=== PATIENT | female | born 1960 | race Caucasian/White ===

== ENCOUNTER 2016-09-23 18:08 | Inpatient (IN) | payer MEDICARE, MEDICAID ==
[~2016-09-23] VITALS: Ht 149.9 cm; Wt 60.8 kg
[~2016-09-23 18:08] MED LIST: AMLO10TA80 PO; DOCU250C69 PO; FURO-152 PO; HYDR-519 PO; LOSA50TA20 PO; METF500T4 PO; METO2.5T14 PO; NPH,100V11 SQ; PRAV40TA58 PO
[2016-09-23 20:26] LABS: BASOPHILS % 1.3 % (0.0-2.0); EOSINOPHILS % 9.4 % (0.0-5.0); HEMOGLOBIN. 12.5 g/dL (12.0-16.0); LYMPHOCYTES % 7.4 % (20.0-50.0); MEAN CORPUSCULAR HEMOGLOBIN 29.3 pg (28.0-32.0); MEAN CORPUSCULAR HGB CONC 31.9 g/dL (31.0-37.0); MEAN CORPUSCULAR VOLUME 91.8 fL (81.0-99.0); MEAN PLATELET VOLUME 7.7 fl (7.4-10.4); MONOCYTES % 6.8 % (2.0-8.0); NEUTROPHILS % 75.1 % (40.0-76.0); PLATELET 287 x1000/uL (130-400); RED BLOOD CELL COUNT 4.25 mill/uL (4.2-5.4); RED CELL DISTRIBUTION WIDTH 18.6 % (11.6-14.6); WHITE BLOOD COUNT 12.9 x1000/uL (4.5-11.0)
[2016-09-23 20:29] LABS: CHLORIDE 102 mEq/L (98-107); INDEX HEMOLYSI 1 (1-3); INDEX ICTERIC 1 (1-4); INDEX LIPEMIC 1 (1-3)
[2016-09-23 20:31] LABS: INR 1.3; PROTHROMBIN TIME 13.8 sec
[2016-09-23 20:38] LABS: ALANINE AMINOTRANSFERASE 27 IU/L (13-61); ALBUMIN 3.6 g/dL (3.4-5.0); ANION GAP 17; CALCIUM 8.9 mg/dL (8.5-10.1); CARBON DIOXIDE 23 mEq/L (21-32); UREA NITROGEN BLOOD 55 mg/dL (7-21); eGFR 6 mL/min (>60)
[2016-09-23] MEDS ORDERED: ALBUTEROL (0.083%) 2.5MG/3ML NEB HHN ONE (21:00)
[2016-09-23] MEDS ORDERED: DEXTROSE 50% WATER 50ML SYRINGE IV ONE ×2 (21:00→23:15)
[2016-09-23] MEDS ORDERED: INSULIN REGULAR (HUMULIN R) 300UNITS/3ML IV ONE (21:00)
[2016-09-23] MEDS ORDERED: SODIUM BICARBONATE 8.4% 1 MEQ/ML 50ML SYR IV ONE (21:00)
[2016-09-23] MEDS ORDERED: SODIUM POLYSTYRENE SULFONATE 15 G/60 ML BOT PO ONE (21:00)
[2016-09-23] MEDS ORDERED: CALCIUM CHLORIDE 1GM/10ML SYR IV ONE (21:15)
[2016-09-23] MEDS ORDERED: ACETAMINOPHEN 325MG TABLET PO PRN (21:30)
[2016-09-23] MEDS ORDERED: DOCUSATE SODIUM 100MG CAPSULE PO PRN (21:30)
[2016-09-23] MEDS ORDERED: ONDANSETRON HCL 4MG/2ML VIAL IV PRN (21:30)
[2016-09-23] MEDS ORDERED: ZOLPIDEM TARTRATE 5MG TABLET PO PRN (21:33)
[2016-09-23] MEDS ORDERED: HYDROMORPHONE HCL/PF 2MG/ML CPJ IV PRN (22:00)
[2016-09-24 00:44] LABS: CALCIUM 9.8 mg/dL (8.5-10.1); TROPONIN I 0.02 ng/mL (0.00-0.04)
[2016-09-24] MEDS: CLONIDINE 0.1MG TABLET PO PRN ×2 (01:59→16:58)
[2016-09-24 05:44] LABS: BASOPHILS % 0.2 % (0.0-2.0); EOSINOPHILS % 10.5 % (0.0-5.0); HEMATOCRIT. 39.2 % (36.0-48.0); HEMOGLOBIN. 12.6 g/dL (12.0-16.0); LYMPHOCYTES % 8.4 % (20.0-50.0); MEAN CORPUSCULAR HEMOGLOBIN 29.1 pg (28.0-32.0); MEAN CORPUSCULAR HGB CONC 32.1 g/dL (31.0-37.0); MEAN CORPUSCULAR VOLUME 90.8 fL (81.0-99.0); MEAN PLATELET VOLUME 7.7 fl (7.4-10.4); MONOCYTES % 7.2 % (2.0-8.0); NEUTROPHILS % 73.7 % (40.0-76.0); PLATELET 271 x1000/uL (130-400); RED BLOOD CELL COUNT 4.32 mill/uL (4.2-5.4); RED CELL DISTRIBUTION WIDTH 18.8 % (11.6-14.6); WHITE BLOOD COUNT 12.3 x1000/uL (4.5-11.0)
[2016-09-24 05:53] LABS: TROPONIN I 0.03 ng/mL (0.00-0.04)
[2016-09-24] MEDS ORDERED: OMEPRAZOLE 20MG CAPSULE EXTENDED RELEASE PO SCH (07:50)
[2016-09-24 10:43] VITALS: BP 187/87
[2016-09-24] MEDS ORDERED: IPRATROPIUM/ALBUTEROL 0.5-3(2.5)MG/3ML NEB INH SCH (12:00)
[2016-09-24] MEDS ORDERED: DEXTROSE 50% WATER 50ML SYRINGE IV PRN (13:30)
[2016-09-24] MEDS ORDERED: HEPARIN SODIUM 1,000 UNIT/1ML VIAL IV NR (14:30)
[2016-09-24 16:54] VITALS: BP 163/92
[2016-09-24 17:10] VITALS: BP 199/97
[2016-09-24] MEDS ORDERED: BLOOD SUGAR DIAGNOSTIC STRIP TEST SCH (17:10)
[2016-09-24] MEDS ORDERED: INSULIN LISPRO 100 UNITS/ML SUBCUT SCH (17:40)
[2016-09-25] MEDS ORDERED: OMEPRAZOLE 20MG CAPSULE EXTENDED RELEASE PO SCH (07:10)
[2016-09-25] MEDS ORDERED: ENOXAPARIN 30MG/0.3ML SYR SUBCUT SCH (09:00)
== END 2016-09-24 17:25 | disposition left against medical advice (07) | DRG 291 ==
LOC: ER 22:18 → 8WST 22:20
PROVIDERS: ADMIT Family Medicine Adult Medicine; ATTEND Family Medicine Adult Medicine
PROC: 5A1D00Z (ICD-10-PCS; principal; 2016-09-24)
DX: I13.2 Hypertensive heart and chronic kidney disease with heart failure and with stage 5 chronic kidney disease, or end stage renal disease (principal); N18.6 End stage renal disease; J98.11 Atelectasis; E87.5 Hyperkalemia; I50.9 Heart failure, unspecified; E11.22 Type 2 diabetes mellitus with diabetic chronic kidney disease; D63.8 Anemia in other chronic diseases classified elsewhere; E78.5 Hyperlipidemia, unspecified; D72.829 Elevated white blood cell count, unspecified; Z99.2 Dependence on renal dialysis; Z90.710 Acquired absence of both cervix and uterus; Z86.718 Personal history of other venous thrombosis and embolism; Z86.14 Personal history of Methicillin resistant Staphylococcus aureus infection; Z86.711 Personal history of pulmonary embolism
CPT/HCPCS: 36415; 71010; 80048; 80053; 80061; 82962; 84484; 85025; 85610; 87040; 93005; 93970; 96374; 96375; 96376; 99285; J1644; J1815; J3490; J7030

== ENCOUNTER 2016-11-10 21:41 | Emergency (ER) | payer MEDICARE, MEDICAID ==
[~2016-11-10] VITALS: Ht 149.9 cm; Wt 61.0 kg
[2016-11-10 23:56] VITALS: BP 139/75
== END 2016-11-10 23:59 | disposition home or self-care (01) ==
LOC: ER 21:42
DX: I10 Essential (primary) hypertension (principal); E11.9 Type 2 diabetes mellitus without complications; Z79.4 Long term (current) use of insulin
CPT/HCPCS: 99281

== ENCOUNTER 2017-01-07 23:37 | Emergency (ER) | payer MEDICARE, MEDICAID ==
[~2017-01-07] VITALS: Ht 149.9 cm; Wt 63.0 kg
[2017-01-08 00:30] VITALS: BP 150/60
[2017-01-08] MEDS ORDERED: ACETAMINOPHEN WITH CODEINE 300/30MG TABLET PO ONE (00:45)
== END 2017-01-08 02:18 | disposition home or self-care (01) ==
LOC: ER 23:37
DX: S83.92XA Sprain of unspecified site of left knee, initial encounter (principal); I12.0 Hypertensive chronic kidney disease with stage 5 chronic kidney disease or end stage renal disease; E11.22 Type 2 diabetes mellitus with diabetic chronic kidney disease; N18.6 End stage renal disease; Z99.2 Dependence on renal dialysis; Z79.4 Long term (current) use of insulin; Z90.411 Acquired partial absence of pancreas; W19.XXXA Unspecified fall, initial encounter; Y93.89 Activity, other specified; Y92.89 Other specified places as the place of occurrence of the external cause; Y99.8 Other external cause status
CPT/HCPCS: 73562; 99284

== ENCOUNTER 2017-08-24 10:33 | Day surgery (SDC) | payer MEDICARE, MEDICAID ==
[~2017-08-24] VITALS: Ht 152.4 cm; Wt 65.0 kg
[~2017-08-24 10:33] MED LIST changes: +BALANCED SALT IRRIG SOLN 15ML ONE; +BUPIVACAINE HCL/PF 0.75% (7.5MG/ML) 10ML ONE; +CIPROFLOXACIN 0.3% OPHTH SOLN 2.5ML ONE; +LIDOCAINE HCL 2%/EPINEPHRINE 1:100,000 20 ML VIAL INFIL ONE; +NEO/POLYMYX B SULF/DEXAMETH OPHTH OINT 3.5GM ONE; +PREDNISOLONE ACETATE 1% OPHTH DROPS 1ML ONE; +TETRACAINE 0.5% OPHTH DROPS 4ML ONE
[2017-08-24] MEDS ORDERED: HYALURONATE SODIUM 14 MG/ML 0.85ML SYRINGE IO ONE (12:14)
[2017-08-24] MEDS ORDERED: TRIAMCINOLONE ACETONIDE 40MG/ML 1ML VIAL ONE (12:15)
[2017-08-24] MEDS ORDERED: SODIUM CHLORIDE 0.9% 500 ML IV ONE (13:00)
[2017-08-24] MEDS ORDERED: METO-396 PO (13:33)
[2017-08-24] MEDS ORDERED: HYDR100T26 PO (13:33)
[2017-08-24] MEDS ORDERED: SEVE800T8 PO (13:33)
[2017-08-24] MEDS ORDERED: TRAM50TA PO (13:33)
[2017-08-24] MEDS ORDERED: CLON0.1T PO (13:33)
[2017-08-24] MEDS ORDERED: FERR325T6 PO (13:33)
[2017-08-24] MEDS ORDERED: WARF4TAB71 PO (13:33)
[2017-08-24] MEDS ORDERED: LIDOCAINE HCL/PF 1% 10 MG/ML 5ML VIAL ONE (13:34)
[2017-08-24] MEDS ORDERED: PROPOFOL 200MG/20ML VIAL IV ONE (13:34)
[2017-08-24] MEDS ORDERED: CEFAZOLIN SODIUM 1000MG/VIAL ONE (13:35)
[2017-08-24] MEDS ORDERED: SODIUM CHLORIDE 0.9% 10ML VIAL ONE (13:35)
[2017-08-24] MEDS ORDERED: MORPHINE SULFATE 2 MG/ML CPJ (NOT FOR IM USE) IV PRN (14:15)
[2017-08-24] MEDS ORDERED: MORPHINE SULFATE 4 MG/ML CPJ (NOT FOR IM USE) IV PRN (14:59)
[2017-08-24 15:19] VITALS: BP 205/92
== END 2017-08-24 18:30 | disposition home or self-care (01) ==
LOC: OR 10:33
PROVIDERS: ATTEND Ophthalmology
DX: H18.422 Band keratopathy, left eye (principal); H21.1X2 Other vascular disorders of iris and ciliary body, left eye; H40.9 Unspecified glaucoma; I50.9 Heart failure, unspecified; E11.22 Type 2 diabetes mellitus with diabetic chronic kidney disease; I13.2 Hypertensive heart and chronic kidney disease with heart failure and with stage 5 chronic kidney disease, or end stage renal disease; N18.6 End stage renal disease; Z79.01 Long term (current) use of anticoagulants; Z90.710 Acquired absence of both cervix and uterus; Z99.2 Dependence on renal dialysis
CPT/HCPCS: 36415; 65400; 82962; 84132; A4216; J0690; J2270; J3490; J7040; J2704; J3301

== ENCOUNTER 2017-10-05 10:23 | Day surgery (SDC) | payer MEDICARE, MEDICAID ==
[~2017-10-05] VITALS: Ht 149.9 cm; Wt 64.4 kg
[~2017-10-05 10:23] MED LIST changes: -BALANCED SALT IRRIG SOLN 15ML ONE; -BUPIVACAINE HCL/PF 0.75% (7.5MG/ML) 10ML ONE; -CIPROFLOXACIN 0.3% OPHTH SOLN 2.5ML ONE; +CLON0.1T PO; +FERR325T6 PO; +HYDR100T26 PO; -LIDOCAINE HCL 2%/EPINEPHRINE 1:100,000 20 ML VIAL INFIL ONE; +METO-396 PO; -NEO/POLYMYX B SULF/DEXAMETH OPHTH OINT 3.5GM ONE; -PREDNISOLONE ACETATE 1% OPHTH DROPS 1ML ONE; +SEVE800T8 PO; -TETRACAINE 0.5% OPHTH DROPS 4ML ONE; +TRAM50TA PO; +WARF4TAB71 PO
[2017-10-05] MEDS ORDERED: BALANCED SALT IRRIG SOLN COMB1 500ML OP ONE (10:30)
[2017-10-05] MEDS ORDERED: SODIUM CHLORIDE 0.9% 500 ML IV NR (12:30)
[2017-10-05] MEDS ORDERED: HYALURONATE SODIUM 14 MG/ML 0.85ML SYRINGE IO ONE ×2 (14:23→14:30)
[2017-10-05] MEDS ORDERED: TRIAMCINOLONE ACETONIDE 40MG/ML 1ML VIAL ONE (14:23)
[2017-10-05] MEDS ORDERED: MIDAZOLAM HCL 2 MG/2 ML VIAL ONE (14:33)
[2017-10-05] MEDS ORDERED: FENTANYL CITRATE/PF 50MCG/ML 2ML VIAL ONE (14:42)
[2017-10-05] MEDS ORDERED: PROPOFOL 200MG/20ML VIAL IV ONE (14:42)
[2017-10-05] MEDS ORDERED: LIDOCAINE HCL/PF 1% 10 MG/ML 5ML VIAL ONE (14:58)
[2017-10-05] MEDS ORDERED: SUCCINYLCHOLINE CHLORIDE 200MG/10ML VIAL IV ONE (14:58)
[2017-10-05] MEDS ORDERED: DEXAMETHASONE 4MG/ML 1ML VIAL ONE (15:28)
[2017-10-05] MEDS ORDERED: ONDANSETRON HCL 4MG/2ML VIAL ONE (15:28)
[2017-10-05] MEDS ORDERED: HYDRALAZINE 20MG/ML VIAL ONE (16:01)
[2017-10-05] MEDS ORDERED: ACETYLCHOLINE CHLORIDE INTRAOCULAR SOLUTION 1:100 ELECTROLYTE DILUENT IO ONE (16:40)
[2017-10-05] MEDS ORDERED: PREDNISOLONE ACETATE 1% OPHTH DROPS 1ML ONE (16:40)
[2017-10-05] MEDS ORDERED: TETRACAINE 0.5% OPHTH DROPS 4ML ONE (16:40)
[2017-10-05] MEDS ORDERED: LIDOCAINE HCL/PF 2% 20 MG/ML 10ML VIAL ONE (16:40)
[2017-10-05] MEDS ORDERED: NEO/POLYMYX B SULF/DEXAMETH OPHTH OINT 3.5GM ONE (16:40)
[2017-10-05] MEDS ORDERED: LIDOCAINE HCL 2%/EPINEPHRINE 1:100,000 20 ML VIAL INFIL ONE (16:40)
[2017-10-05] MEDS ORDERED: BALANCED SALT IRRIG SOLN 15ML ONE (16:40)
[2017-10-05] MEDS ORDERED: CIPROFLOXACIN 0.3% OPHTH SOLN 2.5ML ONE (16:40)
[2017-10-05] MEDS ORDERED: LABETALOL HCL 5MG/ML VIAL 20ML IV ONE (16:40)
[2017-10-05] MEDS ORDERED: TROPICAMIDE 1% OPHTH DROPS 15ML ONE (16:40)
[2017-10-05] MEDS ORDERED: BUPIVACAINE HCL/PF 0.75% (7.5MG/ML) 10ML ONE (16:40)
[2017-10-05] MEDS ORDERED: CYCLOPENTOLATE HCL 1% OPHTH DROPS 2ML ONE (16:40)
[2017-10-05] MEDS ORDERED: PHENYLEPHRINE HCL 10% OPHTH DROPS 5ML ONE (16:40)
== END 2017-10-05 19:15 | disposition home or self-care (01) ==
LOC: OR 10:23
PROVIDERS: ATTEND Ophthalmology
DX: H25.22 Age-related cataract, morgagnian type, left eye (principal); H21.542 Posterior synechiae (iris), left eye; H43.12 Vitreous hemorrhage, left eye; F41.8 Other specified anxiety disorders; I13.2 Hypertensive heart and chronic kidney disease with heart failure and with stage 5 chronic kidney disease, or end stage renal disease; N18.6 End stage renal disease; E11.22 Type 2 diabetes mellitus with diabetic chronic kidney disease; Z79.01 Long term (current) use of anticoagulants; Z90.710 Acquired absence of both cervix and uterus; Z99.2 Dependence on renal dialysis; I50.9 Heart failure, unspecified; Z79.899 Other long term (current) drug therapy; Z98.890 Other specified postprocedural states
CPT/HCPCS: 36415; 65875; 66982; 82962; 84132; J0330; J0360; J1100; J2250; J2405; J3010; J3301; J3490; J7040; V2632; J2704

== ENCOUNTER 2018-05-30 06:22 | Inpatient (IN) | payer MEDICARE, MEDICAID ==
[~2018-05-30] VITALS: Ht 175.3 cm; Wt 86.2 kg
[~2018-05-30 06:22] MED LIST changes: +METF-414 PO; -METF500T4 PO
[2018-05-30 08:41] LABS: INR 1.2; PROTHROMBIN TIME 11.6 sec (9.1-11.1)
[2018-05-30] MEDS ORDERED: DEXTROSE 50% WATER 50ML SYRINGE IV STA (10:08)
[2018-05-30] MEDS ORDERED: INSULIN REGULAR (HUMULIN R) UD 100 UNITS/ML SYR IV STA (10:08)
[2018-05-30] MEDS ORDERED: CLONIDINE 0.1MG TABLET PO PRN (10:30)
[2018-05-30] MEDS: AMLODIPINE 10MG TABLET PO SCH (10:30)
[2018-05-30] MEDS ORDERED: HYDROMORPHONE HCL/PF 2MG/ML CPJ IV PRN (10:30)
[2018-05-30] MEDS ORDERED: ONDANSETRON HCL 4MG/2ML INJ IV PRN (10:30)
[2018-05-30] MEDS ORDERED: ACETAMINOPHEN 325MG TABLET PO PRN (10:30)
[2018-05-30] MEDS ORDERED: DOCUSATE SODIUM 100MG CAPSULE PO PRN (10:30)
[2018-05-30] MEDS ORDERED: SODIUM BICARBONATE 8.4% 1 MEQ/ML 50ML SYR IV NR (11:00)
[2018-05-30] MEDS ORDERED: INSULIN REGULAR (HUMULIN R) 300UNITS/3ML IV NR (11:30)
[2018-05-30 12:00] VITALS: BP 145/57
[2018-05-30 12:00] LABS: BASOPHILS % 1.4 % (0.0-2.0); EOSINOPHILS % 8.7 % (0.0-5.0); HEMATOCRIT. 29.7 % (36.0-48.0); HEMOGLOBIN. 10.1 g/dL (12.0-16.0); LYMPHOCYTES % 11.6 % (20.0-50.0); MEAN CORPUSCULAR HEMOGLOBIN 31.6 pg (28.0-32.0); MEAN CORPUSCULAR VOLUME 93.2 fL (81.0-99.0); MEAN PLATELET VOLUME 8.3 fl (7.4-10.4); MONOCYTES % 7.4 % (2.0-8.0); NEUTROPHILS % 70.9 % (40.0-76.0); PLATELET 178 x1000/uL (130-400); RED BLOOD CELL COUNT 3.19 mill/uL (4.2-5.4); RED CELL DISTRIBUTION WIDTH 16.2 % (11.6-14.6)
[2018-05-30] MEDS: SEVELAMER CARBONATE 800 MG TABLET PO SCH ×2 (13:00→18:16)
[2018-05-30] MEDS: HYDRALAZINE HCL 100MG TABLET PO SCH ×2 (14:00→22:05)
[2018-05-30 16:00] VITALS: BP 114/43
[2018-05-30] MEDS: INSULIN LISPRO 100 UNITS/ML SUBCUT SCH ×2 (18:10→22:13)
[2018-05-30] MEDS ORDERED: DEXTROSE 50% WATER 50ML SYRINGE IV PRN (18:15)
[2018-05-30] MEDS: ENOXAPARIN 30MG/0.3ML SYR SUBCUT SCH (18:17)
[2018-05-30 20:00] VITALS: BP 162/89
[2018-05-30] MEDS: BLOOD SUGAR DIAGNOSTIC STRIP TEST SCH (21:00)
[2018-05-30] MEDS ORDERED: ATORVASTATIN CALCIUM 20MG TABLET PO SCH (21:00)
[2018-05-30] MEDS ORDERED: INSULIN GLARGINE UD 100 UNITS/ML SYR SUBCUT SCH (22:00)
[2018-05-30] MEDS: METOPROLOL TARTRATE 25MG TABLET PO SCH (22:05)
[2018-05-31] VITALS: BP 167/57
[2018-05-31 04:00] VITALS: BP 155/49
[2018-05-31] MEDS: HYDRALAZINE HCL 100MG TABLET PO SCH ×2 (06:00→14:53)
[2018-05-31] MEDS ORDERED: BUPIVACAINE HCL/EPINEPHRINE 0.5%/0.0005 30ML ONE (06:50)
[2018-05-31 07:20] LABS: BASOPHILS % 1.2 % (0.0-2.0); EOSINOPHILS % 7.7 % (0.0-5.0); HEMATOCRIT. 29.3 % (36.0-48.0); HEMOGLOBIN. 9.9 g/dL (12.0-16.0); LYMPHOCYTES % 8.6 % (20.0-50.0); MEAN CORPUSCULAR HEMOGLOBIN 31.4 pg (28.0-32.0); MEAN CORPUSCULAR VOLUME 92.8 fL (81.0-99.0); MONOCYTES % 8.5 % (2.0-8.0); PLATELET 171 x1000/uL (130-400); RED BLOOD CELL COUNT 3.16 mill/uL (4.2-5.4); RED CELL DISTRIBUTION WIDTH 16.5 % (11.6-14.6)
[2018-05-31] MEDS ORDERED: LIDOCAINE HCL 1% 20ML VIAL (Pyxis) INJ ONE (07:20)
[2018-05-31 07:25] LABS: CHLORIDE 99 mEq/L (98-107)
[2018-05-31] MEDS ORDERED: LIDOCAINE HCL/EPINEPHRINE 1%-EPI 1:100,000 20 ML VIAL ONE (07:30)
[2018-05-31 07:32] LABS: LDL CHOLESTEROL 42 mg/dL (5-100)
[2018-05-31 07:33] LABS: HDL CHOLESTEROL 41 mg/dL (40-59)
[2018-05-31] MEDS ORDERED: FENTANYL CITRATE/PF 50MCG/ML 2ML VIAL ONE (07:37)
[2018-05-31] MEDS ORDERED: PROPOFOL 200MG/20ML VIAL IV ONE (07:39)
[2018-05-31] MEDS: BLOOD SUGAR DIAGNOSTIC STRIP TEST SCH ×2 (07:40→12:40)
[2018-05-31] MEDS ORDERED: MIDAZOLAM HCL 2 MG/2 ML VIAL ONE (07:40)
[2018-05-31] MEDS ORDERED: ROCURONIUM BROMIDE 10MG/ML VIAL 5ML IV ONE (07:42)
[2018-05-31] MEDS: SEVELAMER CARBONATE 800 MG TABLET PO SCH ×2 (08:10→13:16)
[2018-05-31] MEDS: INSULIN LISPRO 100 UNITS/ML SUBCUT SCH ×2 (08:10→13:15)
[2018-05-31] MEDS ORDERED: SKIN ADHESIVE 0.7 GM EA TOP ONE (08:31)
[2018-05-31] MEDS ORDERED: NEOSTIGMINE METHYLSULFATE 1MG/ML 10 ML VIAL ONE (08:40)
[2018-05-31] MEDS ORDERED: GLYCOPYRROLATE 0.2 MG/ML 2ML VIAL ONE (08:42)
[2018-05-31] MEDS ORDERED: CALCIUM CHLORIDE 1GM/10ML SYR IV ONE (08:58)
[2018-05-31] MEDS: AMLODIPINE 10MG TABLET PO SCH (09:00)
[2018-05-31] MEDS ORDERED: FOLIC ACID/VITAMIN B COMP W-C TABLET PO SCH (09:00)
[2018-05-31] MEDS: METOPROLOL TARTRATE 25MG TABLET PO SCH (09:00)
[2018-05-31] MEDS ORDERED: ONDANSETRON HCL 4MG/2ML INJ IV PRN (11:45)
[2018-05-31] MEDS ORDERED: HYDROMORPHONE HCL/PF 2MG/ML CPJ IV PRN (11:45)
[2018-05-31 12:00] VITALS: BP 138/58
[2018-05-31 16:00] VITALS: BP 140/56
[2018-05-31] MEDS: ENOXAPARIN 30MG/0.3ML SYR SUBCUT SCH (16:00)
[2018-05-31 16:02] VITALS: BP 128/61
[2018-05-31 16:35] VITALS: BP 145/57
== END 2018-05-31 17:05 | disposition home or self-care (01) | DRG 802 ==
LOC: OR 06:22 → 7WST 14:07
PROVIDERS: ADMIT Emergency Medicine; ATTEND Emergency Medicine
PROC: 5A1D70Z Performance of Urinary Filtration, Intermittent, Less than 6 Hours Per Day (ICD-10-PCS; 2018-05-30)
PROC: 5A1D70Z Performance of Urinary Filtration, Intermittent, Less than 6 Hours Per Day (ICD-10-PCS; 2018-05-31)
PROC: 07B20ZX Excision of Left Neck Lymphatic, Open Approach, Diagnostic (ICD-10-PCS; principal; 2018-05-31 07:30)
DX: R59.1 Generalized enlarged lymph nodes (principal); N18.6 End stage renal disease; I12.0 Hypertensive chronic kidney disease with stage 5 chronic kidney disease or end stage renal disease; E87.5 Hyperkalemia; E11.22 Type 2 diabetes mellitus with diabetic chronic kidney disease; E78.5 Hyperlipidemia, unspecified; D63.8 Anemia in other chronic diseases classified elsewhere; Z79.01 Long term (current) use of anticoagulants; Z79.4 Long term (current) use of insulin; Z86.711 Personal history of pulmonary embolism; Z86.718 Personal history of other venous thrombosis and embolism; Z99.2 Dependence on renal dialysis
CPT/HCPCS: 36415; 80048; 80061; 82962; 84132; 84484; 88305; 93970; C1893; J0171; J1170; J1650; J1815; J2250; J2405; J2704; J2710; J3010; J3490

== ENCOUNTER → 2018-12-30 | Day surgery (SDC) | payer MEDICARE, MEDICAID ==
[~2018-12-30] MED LIST changes: +LIDOCAINE HCL 1% 20ML VIAL (Pyxis) INJ ONE; -LOSA50TA20 PO; +LOSA50TA41 PO; +SODIUM BICARBONATE 4% (2.4MEQ) 5ML VIAL IV ONE
== END | disposition home or self-care (01) ==
LOC: RAD 08:43
PROVIDERS: ATTEND Family Medicine Adult Medicine
DX: R18.8 Other ascites (principal); E11.9 Type 2 diabetes mellitus without complications; I10 Essential (primary) hypertension; Z79.01 Long term (current) use of anticoagulants; Z79.84 Long term (current) use of oral hypoglycemic drugs; Z79.899 Other long term (current) drug therapy; Z83.3 Family history of diabetes mellitus; Z82.49 Family history of ischemic heart disease and other diseases of the circulatory system; Z80.8 Family history of malignant neoplasm of other organs or systems
CPT/HCPCS: 49083; J3490

== ENCOUNTER 2019-02-15 14:51 | Inpatient (IN) | payer MEDICARE, MEDICAID ==
[~2019-02-15] VITALS: Ht 149.9 cm; Wt 66.4 kg
[~2019-02-15 14:51] MED LIST changes: -LIDOCAINE HCL 1% 20ML VIAL (Pyxis) INJ ONE; -SODIUM BICARBONATE 4% (2.4MEQ) 5ML VIAL IV ONE
[2019-02-15] MEDS ORDERED: ONDANSETRON HCL 4MG/2ML INJ IV STA (18:30)
[2019-02-15 18:58] LABS: BASOPHILS % 1.2 % (0.0-2.0); EOSINOPHILS % 1.3 % (0.0-5.0); HEMATOCRIT. 31.5 % (36.0-48.0); HEMOGLOBIN. 10.5 g/dL (12.0-16.0); LYMPHOCYTES % 7.9 % (20.0-50.0); MEAN CORPUSCULAR HEMOGLOBIN 30.1 pg (28.0-32.0); MEAN CORPUSCULAR VOLUME 90.6 fL (81.0-99.0); MEAN PLATELET VOLUME 7.5 fl (7.4-10.4); MONOCYTES % 7.7 % (2.0-8.0); NEUTROPHILS % 81.9 % (40.0-76.0); PLATELET 199 x1000/uL (130-400); RED BLOOD CELL COUNT 3.47 mill/uL (4.2-5.4)
[2019-02-15 19:01] LABS: CHLORIDE 99 mEq/L (98-107)
[2019-02-15 19:02] LABS: INR 1.3; PROTHROMBIN TIME 12.9 sec (9.6-11.0)
[2019-02-15] MEDS ORDERED: CLONIDINE 0.2MG TABLET PO ONE (20:00)
[2019-02-16 00:30] VITALS: BP 172/77
[2019-02-16] MEDS ORDERED: ONDANSETRON HCL 4MG/2ML INJ IV PRN (01:45)
[2019-02-16] MEDS ORDERED: DOCUSATE SODIUM 100MG CAPSULE PO PRN (01:45)
[2019-02-16] MEDS ORDERED: LORAZEPAM 0.5MG TABLET PO PRN (01:45)
[2019-02-16] MEDS ORDERED: HYDROCODONE/ACETAMINOPHEN 5/325MG TABLET PO PRN (01:45)
[2019-02-16] MEDS ORDERED: HYDROCODONE/ACETAMINOPHEN 10/325MG TABLET PO PRN (01:45)
[2019-02-16] MEDS ORDERED: DIPHENHYDRAMINE 50MG/ML VIAL IV PRN (01:45)
[2019-02-16] MEDS ORDERED: IPRATROPIUM/ALBUTEROL 0.5-3(2.5)MG/3ML NEB INH PRN (01:45)
[2019-02-16] MEDS ORDERED: ACETAMINOPHEN 650MG SUPP PR PRN (01:45)
[2019-02-16] MEDS ORDERED: MAGNESIUM/ALUMINUM HYDROXIDE/SIMETHICONE 30ML UDC PO PRN (01:45)
[2019-02-16] MEDS ORDERED: ACETAMINOPHEN 325MG TABLET PO PRN (01:45)
[2019-02-16] MEDS ORDERED: HYDROCODONE/APAP 7.5/325MG 1 TAB TABLET PO PRN (01:45)
[2019-02-16] MEDS: CLONIDINE 0.1MG TABLET PO PRN ×2 (03:30→12:49)
[2019-02-16 04:00] VITALS: BP 177/79
[2019-02-16] MEDS ORDERED: DEXTROSE 50% WATER 50ML SYRINGE IV PRN (04:00)
[2019-02-16] MEDS: BLOOD SUGAR DIAGNOSTIC STRIP TEST SCH ×4 (06:44→20:21)
[2019-02-16] MEDS ORDERED: LIDOCAINE HCL 1% 20ML VIAL (Pyxis) INJ ONE (07:46)
[2019-02-16] MEDS ORDERED: SODIUM BICARBONATE 4% (2.4MEQ) 5ML VIAL IV ONE (07:47)
[2019-02-16] MEDS: INSULIN LISPRO 100 UNITS/ML SUBCUT SCH ×4 (07:50→20:22)
[2019-02-16 08:00] VITALS: BP 140/75
[2019-02-16 08:07] LABS: PHOSPHORUS 6.9 mg/dL (2.5-4.9)
[2019-02-16 08:27] LABS: BASOPHILS % 1.6 % (0.0-2.0); EOSINOPHILS % 4.6 % (0.0-5.0); HEMATOCRIT. 28.2 % (36.0-48.0); HEMOGLOBIN. 9.4 g/dL (12.0-16.0); LYMPHOCYTES % 11.5 % (20.0-50.0); MEAN CORPUSCULAR HEMOGLOBIN 30.3 pg (28.0-32.0); MEAN CORPUSCULAR VOLUME 90.3 fL (81.0-99.0); MEAN PLATELET VOLUME 8.5 fl (7.4-10.4); MONOCYTES % 9.2 % (2.0-8.0); NEUTROPHILS % 73.1 % (40.0-76.0); PLATELET 179 x1000/uL (130-400); RED BLOOD CELL COUNT 3.12 mill/uL (4.2-5.4); RED CELL DISTRIBUTION WIDTH 16.1 % (11.6-14.6)
[2019-02-16 08:33] LABS: CHLORIDE 101 mEq/L (98-107)
[2019-02-16] MEDS: AMLODIPINE 5MG TABLET PO SCH (09:00)
[2019-02-16 12:00] VITALS: BP 172/75
[2019-02-16] MEDS: LOSARTAN POTASSIUM 50 MG TABLET PO SCH (13:15)
[2019-02-16] MEDS: CLONIDINE 0.1MG TABLET PO SCH ×2 (14:00→21:09)
[2019-02-16] MEDS: HYDRALAZINE HCL 50MG TABLET PO SCH ×2 (14:00→21:08)
[2019-02-16 14:12] LABS: HEMATOCRIT 27.5 % (36.0-48.0); HEMOGLOBIN 9.3 g/dL (12.0-16.0)
[2019-02-16 16:00] VITALS: BP 150/80
[2019-02-16 20:00] VITALS: BP 186/56
[2019-02-16] MEDS ORDERED: CARVEDILOL 3.125 MG TABLET PO SCH (21:00)
[2019-02-17] VITALS: BP 183/63
[2019-02-17] MEDS: CLONIDINE 0.1MG TABLET PO PRN (01:03)
[2019-02-17 04:00] VITALS: BP 155/69
[2019-02-17] MEDS: CLONIDINE 0.1MG TABLET PO SCH ×2 (05:06→14:00)
[2019-02-17] MEDS: HYDRALAZINE HCL 50MG TABLET PO SCH ×2 (05:06→14:00)
[2019-02-17] MEDS: BLOOD SUGAR DIAGNOSTIC STRIP TEST SCH ×2 (06:42→13:19)
[2019-02-17 06:56] LABS: BASOPHILS % 0.9 % (0.0-2.0); EOSINOPHILS % 8.2 % (0.0-5.0); HEMOGLOBIN. 8.8 g/dL (12.0-16.0); LYMPHOCYTES % 10.1 % (20.0-50.0); MEAN CORPUSCULAR HEMOGLOBIN 30.2 pg (28.0-32.0); MEAN CORPUSCULAR VOLUME 88.9 fL (81.0-99.0); MONOCYTES % 9.1 % (2.0-8.0); NEUTROPHILS % 71.7 % (40.0-76.0); PLATELET 184 x1000/uL (130-400); RED BLOOD CELL COUNT 2.93 mill/uL (4.2-5.4); RED CELL DISTRIBUTION WIDTH 15.9 % (11.6-14.6)
[2019-02-17 07:24] LABS: CHLORIDE 103 mEq/L (98-107)
[2019-02-17 07:37] LABS: HDL CHOLESTEROL 31 mg/dL (40-59); LDL CHOLESTEROL 47 mg/dL (5-100)
[2019-02-17 07:40] LABS: T4 FREE 1.18 ng/dL (0.76-1.46)
[2019-02-17] MEDS: INSULIN LISPRO 100 UNITS/ML SUBCUT SCH ×2 (07:50→13:19)
[2019-02-17 08:16] VITALS: BP 138/56
[2019-02-17] MEDS: LOSARTAN POTASSIUM 50 MG TABLET PO SCH (08:47)
[2019-02-17] MEDS: AMLODIPINE 5MG TABLET PO SCH (08:50)
[2019-02-17] MEDS ORDERED: CARVEDILOL 6.25 MG TABLET PO SCH (09:00)
[2019-02-17 12:03] VITALS: BP 156/56
[2019-02-17 15:44] VITALS: BP 119/51
[2019-02-17 16:45] VITALS: BP 119/51
== END 2019-02-17 17:15 | disposition home or self-care (01) | DRG 432 ==
LOC: ER 14:51 → EDBEDREQ 18:37 → 6WST 19:19 → EDBEDREQTM 19:24 → EDBEDREQ 19:24 → ENRESERV 23:23
PROVIDERS: ADMIT Family Medicine Adult Medicine; ATTEND Family Medicine Adult Medicine
PROC: 5A1D70Z Performance of Urinary Filtration, Intermittent, Less than 6 Hours Per Day (ICD-10-PCS; principal; 2019-02-16)
PROC: 0W9G3ZZ Drainage of Peritoneal Cavity, Percutaneous Approach (ICD-10-PCS; 2019-02-16)
DX: K74.60 Unspecified cirrhosis of liver (principal); J96.21 Acute and chronic respiratory failure with hypoxia; N18.6 End stage renal disease; I50.23 Acute on chronic systolic (congestive) heart failure; R18.8 Other ascites; I13.2 Hypertensive heart and chronic kidney disease with heart failure and with stage 5 chronic kidney disease, or end stage renal disease; I42.9 Cardiomyopathy, unspecified; D63.8 Anemia in other chronic diseases classified elsewhere; E87.5 Hyperkalemia; I44.7 Left bundle-branch block, unspecified; I27.20 Pulmonary hypertension, unspecified; Z60.2 Problems related to living alone; I48.0 Paroxysmal atrial fibrillation; E11.22 Type 2 diabetes mellitus with diabetic chronic kidney disease; Z95.828 Presence of other vascular implants and grafts; Z86.718 Personal history of other venous thrombosis and embolism; Z99.81 Dependence on supplemental oxygen; Z86.711 Personal history of pulmonary embolism; Z90.49 Acquired absence of other specified parts of digestive tract; Z79.84 Long term (current) use of oral hypoglycemic drugs; Z79.01 Long term (current) use of anticoagulants; Z79.899 Other long term (current) drug therapy; Z83.3 Family history of diabetes mellitus; Z82.49 Family history of ischemic heart disease and other diseases of the circulatory system
CPT/HCPCS: 36415; 49083; 71045; 80048; 80061; 82962; 83036; 83735; 84100; 84439; 84443; 84481; 84484; 85014; 85018; 93005; 93306; 93970; 96374; 99285; J1815; J3490

== ENCOUNTER 2019-12-04 12:43 | Emergency (ER) | payer MEDICARE, MEDICAID ==
[~2019-12-04] VITALS: Ht 157.5 cm; Wt 72.5 kg
[2019-12-04 14:54] VITALS: BP 142/82
== END 2019-12-04 17:03 | disposition home or self-care (01) ==
LOC: ER 12:43
DX: R18.8 Other ascites (principal); H61.23 Impacted cerumen, bilateral; E11.22 Type 2 diabetes mellitus with diabetic chronic kidney disease; I12.0 Hypertensive chronic kidney disease with stage 5 chronic kidney disease or end stage renal disease; N18.6 End stage renal disease; Z99.2 Dependence on renal dialysis; Z79.84 Long term (current) use of oral hypoglycemic drugs
CPT/HCPCS: 99281

== ENCOUNTER 2019-12-05 07:35 | Inpatient (IN) | payer MEDICARE, MEDICAID ==
[~2019-12-05] VITALS: Ht 152.4 cm; Wt 60.3 kg
[2019-12-05 09:26] LABS: HEMATOCRIT. 31.4 % (36.0-48.0); HEMOGLOBIN. 10.6 g/dL (12.0-16.0); MEAN CORPUSCULAR HEMOGLOBIN 31.5 pg (28.0-32.0); MEAN CORPUSCULAR VOLUME 93.5 fL (81.0-99.0); MEAN PLATELET VOLUME 8.3 fl (7.4-10.4); PLATELET 198 x1000/uL (130-400); RED BLOOD CELL COUNT 3.36 mill/uL (4.2-5.4); RED CELL DISTRIBUTION WIDTH 16.5 % (11.6-14.6)
[2019-12-05 09:32] LABS: CHLORIDE 101 mEq/L (98-107)
[2019-12-05 09:38] LABS: PARTIAL THROMBOPLASTIN TIME 44.6 sec (23.4-31.0); PROTHROMBIN TIME 61.4 sec (9.6-11.0)
[2019-12-05 09:56] LABS: INR 5.9
[2019-12-05 10:14] LABS: PLATELET ESTIMATE NORMAL
[2019-12-05] MEDS ORDERED: ALBUTEROL (0.083%) 2.5MG/3ML NEB HHN ONE (10:15)
[2019-12-05] MEDS ORDERED: DEXTROSE 50% WATER 50ML SYRINGE IV ONE (10:15)
[2019-12-05] MEDS ORDERED: SODIUM POLYSTYRENE SULFONATE 15 G/60 ML BOT PO ONE (10:15)
[2019-12-05] MEDS ORDERED: INSULIN REGULAR (HUMULIN R) 300UNITS/3ML IV ONE (10:15)
[2019-12-05] MEDS ORDERED: SODIUM BICARBONATE 8.4% 1 MEQ/ML 50ML SYR IV ONE (10:15)
[2019-12-05] MEDS ORDERED: ONDANSETRON HCL 4MG/2ML INJ IV PRN (11:15)
[2019-12-05] MEDS ORDERED: CLONIDINE 0.1MG TABLET PO PRN (13:15)
[2019-12-05] MEDS ORDERED: PHYTONADIONE 10MG/ML AMP SUBCUT SCH (13:15)
[2019-12-05] MEDS ORDERED: ACETAMINOPHEN 325MG TABLET PO PRN (13:15)
[2019-12-05] MEDS ORDERED: DEXTROSE 50% WATER 50ML SYRINGE IV PRN (13:15)
[2019-12-05] MEDS: BLOOD SUGAR DIAGNOSTIC STRIP TEST SCH ×3 (14:10→21:46)
[2019-12-05] MEDS: INSULIN LISPRO 100 UNITS/ML SUBCUT SCH ×3 (14:13→21:46)
[2019-12-05 16:30] VITALS: BP 129/73
[2019-12-05 20:00] VITALS: BP_SYST 113; BP_SYST 117; BP_DIAS 67; BP_DIAS 75
[2019-12-06] VITALS (11 sets, daily range): BP systolic 121–156; BP diastolic 64–89
[2019-12-06] MEDS: INSULIN LISPRO 100 UNITS/ML SUBCUT SCH ×4 (07:50→20:39)
[2019-12-06] MEDS: BLOOD SUGAR DIAGNOSTIC STRIP TEST SCH ×4 (07:52→20:35)
[2019-12-06 10:02] LABS: HEMATOCRIT. 30.4 % (36.0-48.0); HEMOGLOBIN. 10.2 g/dL (12.0-16.0); MEAN CORPUSCULAR HEMOGLOBIN 31.1 pg (28.0-32.0); MEAN CORPUSCULAR VOLUME 92.9 fL (81.0-99.0); MEAN PLATELET VOLUME 8.3 fl (7.4-10.4); PLATELET 182 x1000/uL (130-400); RED BLOOD CELL COUNT 3.27 mill/uL (4.2-5.4); RED CELL DISTRIBUTION WIDTH 16.8 % (11.6-14.6)
[2019-12-06 10:07] LABS: INR 2.4; PROTHROMBIN TIME 25.6 sec (9.6-11.0)
[2019-12-06 10:43] LABS: PLATELET ESTIMATE NORMAL
[2019-12-06] MEDS ORDERED: DOXA4TAB3 MT (16:57)
[2019-12-06] MEDS ORDERED: HYDR-459 MT (16:57)
[2019-12-06] MEDS ORDERED: CLON-457 PO (16:57)
[2019-12-06] MEDS ORDERED: MECL-159 MT (16:57)
[2019-12-06] MEDS ORDERED: TRAZODONE HCL 50MG TABLET PO PRN (23:00)
[2019-12-06] MEDS: TRAZODONE HCL 50MG TABLET PO PRN (23:34)
[2019-12-07 00:20] VITALS: BP 131/76
[2019-12-07 04:00] VITALS: BP 146/93
[2019-12-07] MEDS: TRAZODONE HCL 50MG TABLET PO PRN (04:53)
[2019-12-07] MEDS: BLOOD SUGAR DIAGNOSTIC STRIP TEST SCH ×3 (06:47→17:20)
[2019-12-07] MEDS: INSULIN LISPRO 100 UNITS/ML SUBCUT SCH ×3 (07:50→17:50)
[2019-12-07 07:58] VITALS: BP 143/82
[2019-12-07 08:40] LABS: BASOPHILS % 1.6 % (0.0-2.0); HEMATOCRIT. 28.7 % (36.0-48.0); HEMOGLOBIN. 9.9 g/dL (12.0-16.0); LYMPHOCYTES % 9.8 % (20.0-50.0); MEAN CORPUSCULAR HEMOGLOBIN 32.2 pg (28.0-32.0); MEAN CORPUSCULAR VOLUME 93.5 fL (81.0-99.0); NEUTROPHILS % 72.6 % (40.0-76.0); PLATELET 167 x1000/uL (130-400); RED BLOOD CELL COUNT 3.07 mill/uL (4.2-5.4); RED CELL DISTRIBUTION WIDTH 16.9 % (11.6-14.6)
[2019-12-07 08:52] LABS: INR 1.5; PROTHROMBIN TIME 16.6 sec (9.6-11.0)
[2019-12-07] MEDS ORDERED: SODIUM POLYSTYRENE SULFONATE 15 G/60 ML BOT PO NR (11:00)
[2019-12-07 11:44] VITALS: BP 159/96
[2019-12-07] MEDS ORDERED: METOPROLOL TARTRATE 50MG TABLET PO NR (14:00)
[2019-12-07] MEDS ORDERED: DILTIAZEM HCL 5MG/ML 5ML VIAL IV NR (14:15)
[2019-12-07] MEDS ORDERED: DILTIAZEM HCL 60MG TABLET PO SCH (15:30)
[2019-12-07 16:09] VITALS: BP 117/71
[2019-12-07] MEDS ORDERED: WARFARIN SODIUM 4MG TABLET PO SCH (18:00)
[2019-12-07 18:12] VITALS: BP 117/71
[2019-12-07] MEDS ORDERED: METOPROLOL TARTRATE 50MG TABLET PO SCH (21:00)
== END 2019-12-07 18:48 | disposition home health service (06) | DRG 640 ==
LOC: ER 07:35 → 6WST 10:26 → ENRESERV 15:17
PROVIDERS: ADMIT Internal Medicine; ATTEND Internal Medicine
PROC: 5A1D70Z Performance of Urinary Filtration, Intermittent, Less than 6 Hours Per Day (ICD-10-PCS; 2019-12-05)
PROC: 30233K1 Transfusion of Nonautologous Frozen Plasma into Peripheral Vein, Percutaneous Approach (ICD-10-PCS; 2019-12-06)
PROC: 0W9G3ZZ Drainage of Peritoneal Cavity, Percutaneous Approach (ICD-10-PCS; principal; 2019-12-07)
PROC: 5A1D70Z Performance of Urinary Filtration, Intermittent, Less than 6 Hours Per Day (ICD-10-PCS; 2019-12-07)
DX: E87.5 Hyperkalemia (principal); N18.6 End stage renal disease; D68.9 Coagulation defect, unspecified; I42.0 Dilated cardiomyopathy; R18.8 Other ascites; I48.20 Chronic atrial fibrillation, unspecified; I13.2 Hypertensive heart and chronic kidney disease with heart failure and with stage 5 chronic kidney disease, or end stage renal disease; I50.22 Chronic systolic (congestive) heart failure; D63.1 Anemia in chronic kidney disease; I27.20 Pulmonary hypertension, unspecified; I34.0 Nonrheumatic mitral (valve) insufficiency; I36.1 Nonrheumatic tricuspid (valve) insufficiency; I27.21 Secondary pulmonary arterial hypertension; I45.4 Nonspecific intraventricular block; E11.22 Type 2 diabetes mellitus with diabetic chronic kidney disease; Z99.2 Dependence on renal dialysis; Z79.01 Long term (current) use of anticoagulants; Z79.891 Long term (current) use of opiate analgesic; Z79.84 Long term (current) use of oral hypoglycemic drugs; Z79.899 Other long term (current) drug therapy; Z86.718 Personal history of other venous thrombosis and embolism; Z86.711 Personal history of pulmonary embolism; Z95.828 Presence of other vascular implants and grafts
CPT/HCPCS: 36415; 49083; 71045; 80048; 80053; 82962; 83880; 84145; 84484; 85025; 86850; 86900; 86927; 93005; 93970; 97162; J1815; J3490; P9017

== ENCOUNTER 2020-04-23 14:16 | Emergency (ER) | payer MEDICARE, MEDICAID ==
[~2020-04-23] VITALS: Ht 157.5 cm; Wt 77.0 kg
[~2020-04-23 14:16] MED LIST changes: +CLON-457 PO; -CLON0.1T PO; +DIPH103G TP; +DIPH25CA83 MT; -DOCU250C69 PO; +DOXA4TAB3 MT; -FERR325T6 PO; +HYDR-459 MT; -HYDR-519 PO; -LOSA50TA41 PO; +MECL-159 MT; -METF-414 PO; -METO2.5T14 PO; -PRAV40TA58 PO; -TRAM50TA PO
[2020-04-23 20:19] LABS: BASOPHILS % 1.3 % (0.0-2.0); EOSINOPHILS % 7.2 % (0.0-5.0); HEMATOCRIT. 31.1 % (36.0-48.0); HEMOGLOBIN. 10.3 g/dL (12.0-16.0); LYMPHOCYTES % 8.2 % (20.0-50.0); MEAN CORPUSCULAR HEMOGLOBIN 31.2 pg (28.0-32.0); MEAN PLATELET VOLUME 8.7 fl (7.4-10.4); MONOCYTES % 8.1 % (2.0-8.0); NEUTROPHILS % 75.2 % (40.0-76.0); PLATELET 193 x1000/uL (130-400); RED BLOOD CELL COUNT 3.31 mill/uL (4.2-5.4); RED CELL DISTRIBUTION WIDTH 17.7 % (11.6-14.6)
[2020-04-23 20:23] LABS: CHLORIDE 101 mEq/L (98-107)
[2020-04-23 20:29] LABS: INR 1.9; PARTIAL THROMBOPLASTIN TIME 37.4 sec (23.4-31.0); PROTHROMBIN TIME 19.2 sec (9.6-11.0)
[2020-04-23 21:51] VITALS: BP 11/90
== END 2020-04-23 22:03 | disposition left against medical advice (07) ==
LOC: ER 14:16
DX: R18.8 Other ascites (principal); I13.2 Hypertensive heart and chronic kidney disease with heart failure and with stage 5 chronic kidney disease, or end stage renal disease; E11.22 Type 2 diabetes mellitus with diabetic chronic kidney disease; N18.6 End stage renal disease; I50.9 Heart failure, unspecified; Z99.2 Dependence on renal dialysis; Z79.899 Other long term (current) drug therapy; Z79.4 Long term (current) use of insulin; Z86.79 Personal history of other diseases of the circulatory system
CPT/HCPCS: 36415; 71045; 76705; 80053; 83880; 84484; 85025; 93005; 99285

== ENCOUNTER 2020-10-25 03:09 | Inpatient (IN) | payer MEDICARE, MEDICAID ==
[~2020-10-25] VITALS: Ht 149.9 cm; Wt 64.4 kg
[~2020-10-25 03:09] MED LIST changes: +AMOX1TAB16 MT; +APIX5TAB PO; -CLON-457 PO; +DILT240C91 MT; -FURO-152 PO; -WARF4TAB71 PO
[2020-10-25] MEDS ORDERED: NOREPINEPHRINE 8MG/250ML PMX 250 ML IV ONE (04:30)
[2020-10-25 05:05] LABS: CHLORIDE 99 mEq/L (98-107)
[2020-10-25 05:16] LABS: BASOPHILS % 0.9 % (0.0-2.0); EOSINOPHILS % 4.3 % (0.0-5.0); HEMATOCRIT. 32.2 % (36.0-48.0); HEMOGLOBIN. 10.4 g/dL (12.0-16.0); LYMPHOCYTES % 8.4 % (20.0-50.0); MEAN CORPUSCULAR HEMOGLOBIN 30.7 pg (28.0-32.0); MEAN CORPUSCULAR VOLUME 94.8 fL (81.0-99.0); MONOCYTES % 10.2 % (2.0-8.0); NEUTROPHILS % 76.2 % (40.0-76.0); PLATELET 289 x1000/uL (130-400); RED CELL DISTRIBUTION WIDTH 16.2 % (11.6-14.6)
[2020-10-25 05:19] LABS: INR 1.1; PROTHROMBIN TIME 12.2 sec (9.6-11.0)
[2020-10-25] MEDS ORDERED: ONDANSETRON HCL 4MG/2ML INJ IV PRN (07:15)
[2020-10-25] MEDS ORDERED: LORAZEPAM 0.5MG TABLET PO PRN (07:15)
[2020-10-25] MEDS ORDERED: DIPHENHYDRAMINE 50MG/ML VIAL IV PRN (07:15)
[2020-10-25] MEDS ORDERED: CLONIDINE 0.1MG TABLET PO PRN (07:15)
[2020-10-25] MEDS ORDERED: ENOXAPARIN 40MG/0.4ML SYR SUBCUT SCH (07:15)
[2020-10-25] MEDS ORDERED: IPRATROPIUM/ALBUTEROL 0.5-3(2.5)MG/3ML NEB NEB PRN (07:15)
[2020-10-25] MEDS ORDERED: ZOLPIDEM TARTRATE 5MG TABLET PO PRN (07:15)
[2020-10-25] MEDS ORDERED: NITROGLYCERIN 0.4MG TABLET SL SL PRN (07:15)
[2020-10-25] MEDS ORDERED: ACETAMINOPHEN 325MG TABLET PO PRN (07:15)
[2020-10-25] MEDS ORDERED: DOCUSATE SODIUM 100MG CAPSULE PO PRN (07:15)
[2020-10-25] MEDS ORDERED: DEXTROSE 50% WATER 50ML SYRINGE IV PRN (07:15)
[2020-10-25] MEDS ORDERED: GUAIFENESIN 200MG/10ML SUGAR FREE UDC PO PRN (07:15)
[2020-10-25] MEDS ORDERED: MAGNESIUM/ALUMINUM HYDROXIDE/SIMETHICONE 30ML UDC PO PRN (07:15)
[2020-10-25] MEDS: INSULIN LISPRO 100 UNITS/ML SUBCUT SCH ×4 (08:20→20:59)
[2020-10-25 11:45] VITALS: BP 107/65
[2020-10-25 12:00] VITALS: BP 107/65
[2020-10-25] MEDS: BLOOD SUGAR DIAGNOSTIC STRIP TEST SCH ×3 (12:10→20:59)
[2020-10-25] MEDS: CHOLECALCIFEROL (D3) 1000 UNIT TABLET PO SCH (14:30)
[2020-10-25] MEDS: ZINC SULFATE 220 MG ( 50 ) CAPSULE PO SCH (14:30)
[2020-10-25] MEDS: ASCORBIC ACID 500 MG TABLET PO SCH ×2 (14:30→20:54)
[2020-10-25] MEDS: ENOXAPARIN 30MG/0.3ML SYR SUBCUT SCH (15:00)
[2020-10-25] MEDS: TRAMADOL 50MG TABLET PO PRN ×2 (15:03→20:54)
[2020-10-25 16:00] VITALS: BP 119/59
[2020-10-25 20:00] VITALS: BP 119/65
[2020-10-25] MEDS: FAMOTIDINE 20MG TABLET PO SCH (20:54)
[2020-10-25 22:12] LABS: CREATINE KINASE 12 IU/L (26-192)
[2020-10-25 22:13] LABS: CREATINE KINASE MB FRACTION < 1.0 ng/mL (0.5-3.6)
[2020-10-26] VITALS: BP 125/70
[2020-10-26 04:00] VITALS: BP 135/65
[2020-10-26] MEDS: TRAMADOL 50MG TABLET PO PRN ×3 (04:34→21:40)
[2020-10-26] MEDS: BLOOD SUGAR DIAGNOSTIC STRIP TEST SCH ×4 (05:51→21:00)
[2020-10-26] MEDS: INSULIN LISPRO 100 UNITS/ML SUBCUT SCH ×4 (05:52→21:00)
[2020-10-26 06:36] LABS: BASOPHILS % 1.2 % (0.0-2.0); EOSINOPHILS % 5.8 % (0.0-5.0); HEMATOCRIT. 31.7 % (36.0-48.0); HEMOGLOBIN. 10.4 g/dL (12.0-16.0); LYMPHOCYTES % 8.3 % (20.0-50.0); MEAN CORPUSCULAR HEMOGLOBIN 31.3 pg (28.0-32.0); MEAN CORPUSCULAR VOLUME 95.4 fL (81.0-99.0); MEAN PLATELET VOLUME 7.7 fl (7.4-10.4); MONOCYTES % 10.8 % (2.0-8.0); NEUTROPHILS % 73.9 % (40.0-76.0); PLATELET 256 x1000/uL (130-400); RED BLOOD CELL COUNT 3.32 mill/uL (4.2-5.4); RED CELL DISTRIBUTION WIDTH 16.6 % (11.6-14.6)
[2020-10-26 06:42] LABS: CHLORIDE 104 mEq/L (98-107)
[2020-10-26 06:52] LABS: PHOSPHORUS 4.3 mg/dL (2.5-4.9)
[2020-10-26 08:00] VITALS: BP 124/68
[2020-10-26] MEDS: CHOLECALCIFEROL (D3) 1000 UNIT TABLET PO SCH (09:30)
[2020-10-26] MEDS: ZINC SULFATE 220 MG ( 50 ) CAPSULE PO SCH (09:30)
[2020-10-26] MEDS: ASCORBIC ACID 500 MG TABLET PO SCH ×2 (09:30→21:40)
[2020-10-26] MEDS: ACETAMINOPHEN 325MG TABLET PO PRN (09:35)
[2020-10-26 12:00] VITALS: BP 128/62
[2020-10-26] MEDS: ENOXAPARIN 30MG/0.3ML SYR SUBCUT SCH (15:00)
[2020-10-26 16:00] VITALS: BP 133/69
[2020-10-26] MEDS ORDERED: ENOXAPARIN 60MG/0.6ML SYR SUBCUT SCH (19:30)
[2020-10-26 20:00] VITALS: BP 110/51
[2020-10-26] MEDS: FAMOTIDINE 20MG TABLET PO SCH (21:40)
[2020-10-27] VITALS: BP 145/83
[2020-10-27] MEDS: ACETAMINOPHEN 325MG TABLET PO PRN ×2 (00:53→02:25)
[2020-10-27 04:00] VITALS: BP 123/76
[2020-10-27] MEDS: INSULIN LISPRO 100 UNITS/ML SUBCUT SCH ×2 (06:09→12:40)
[2020-10-27] MEDS: BLOOD SUGAR DIAGNOSTIC STRIP TEST SCH ×2 (06:09→13:00)
[2020-10-27 06:21] LABS: HEMATOCRIT. 32.4 % (36.0-48.0); HEMOGLOBIN. 10.6 g/dL (12.0-16.0); MEAN CORPUSCULAR HEMOGLOBIN 31.4 pg (28.0-32.0); MEAN CORPUSCULAR VOLUME 95.8 fL (81.0-99.0); PLATELET 206 x1000/uL (130-400); RED BLOOD CELL COUNT 3.38 mill/uL (4.2-5.4); RED CELL DISTRIBUTION WIDTH 16.7 % (11.6-14.6)
[2020-10-27 06:30] VITALS: BP 138/71
[2020-10-27 08:00] VITALS: BP 135/78
[2020-10-27] MEDS: ZINC SULFATE 220 MG ( 50 ) CAPSULE PO SCH (09:22)
[2020-10-27] MEDS: ASCORBIC ACID 500 MG TABLET PO SCH (09:22)
[2020-10-27] MEDS: TRAMADOL 50MG TABLET PO PRN ×2 (09:23→13:29)
[2020-10-27] MEDS: CHOLECALCIFEROL (D3) 1000 UNIT TABLET PO SCH (09:29)
[2020-10-27 12:00] VITALS: BP 138/71
[2020-10-27 12:57] LABS: PLATELET ESTIMATE NORMAL
[2020-10-27 13:29] VITALS: BP 138/71
[2020-10-27] MEDS ORDERED: TRAM50TA3 MT (14:34)
== END 2020-10-27 14:45 | disposition home or self-care (01) | DRG 432 ==
LOC: ER 03:09 → 8WST 07:04 → SUPCPDRO 07:10 → ENRESERV 08:00 → 8WST 10-26 17:52
PROVIDERS: ADMIT Family Medicine Adult Medicine; ATTEND Family Medicine Adult Medicine
PROC: 5A1D70Z Performance of Urinary Filtration, Intermittent, Less than 6 Hours Per Day (ICD-10-PCS; principal; 2020-10-25)
PROC: 0W9G3ZZ Drainage of Peritoneal Cavity, Percutaneous Approach (ICD-10-PCS; 2020-10-25)
PROC: 5A1D70Z Performance of Urinary Filtration, Intermittent, Less than 6 Hours Per Day (ICD-10-PCS; 2020-10-26)
DX: K74.60 Unspecified cirrhosis of liver (principal); E43 Unspecified severe protein-calorie malnutrition; I50.33 Acute on chronic diastolic (congestive) heart failure; N18.6 End stage renal disease; I13.2 Hypertensive heart and chronic kidney disease with heart failure and with stage 5 chronic kidney disease, or end stage renal disease; R18.8 Other ascites; E87.1 Hypo-osmolality and hyponatremia; D63.8 Anemia in other chronic diseases classified elsewhere; E11.22 Type 2 diabetes mellitus with diabetic chronic kidney disease; E66.9 Obesity, unspecified; I48.91 Unspecified atrial fibrillation; E11.65 Type 2 diabetes mellitus with hyperglycemia; Z91.14 Patient's other noncompliance with medication regimen; Z99.2 Dependence on renal dialysis; Z20.822 Contact with and (suspected) exposure to COVID-19; Z68.28 Body mass index [BMI] 28.0-28.9, adult; Z90.710 Acquired absence of both cervix and uterus; Z86.718 Personal history of other venous thrombosis and embolism
CPT/HCPCS: 36415; 49083; 71045; 80048; 80053; 80061; 82550; 82553; 82962; 83036; 83735; 83880; 84100; 84484; 85025; 87426; 93005; 93970; 99285; J1650; J1815

== ENCOUNTER 2021-02-14 09:30 | Inpatient (IN) | payer MEDICARE, MEDICAID ==
[~2021-02-14] VITALS: Ht 157.5 cm; Wt 77.3 kg
[~2021-02-14 09:30] MED LIST changes: +TRAM50TA3 MT
[2021-02-14 11:27] LABS: HEMATOCRIT. 27.9 % (36.0-48.0); HEMOGLOBIN. 9.6 g/dL (12.0-16.0); MEAN CORPUSCULAR HEMOGLOBIN 32.4 pg (28.0-32.0); MEAN CORPUSCULAR VOLUME 94.7 fL (81.0-99.0); MEAN PLATELET VOLUME 7.9 fl (7.4-10.4); PLATELET 200 x1000/uL (130-400); RED BLOOD CELL COUNT 2.95 mill/uL (4.2-5.4); RED CELL DISTRIBUTION WIDTH 16.3 % (11.6-14.6)
[2021-02-14 11:42] LABS: PHOSPHORUS 4.3 mg/dL (2.5-4.9)
[2021-02-14 11:52] LABS: PLATELET ESTIMATE NORMAL
[2021-02-14] MEDS ORDERED: IOHEXOL-300 100 ML BOTTLE ONE (15:18)
[2021-02-14 16:53] LABS: INR 1.1; PROTHROMBIN TIME 11.5 sec (9.6-11.0)
[2021-02-14] MEDS: HYDROCODONE/ACETAMINOPHEN 5/325MG TABLET PO PRN ×2 (17:08→23:04)
[2021-02-14] MEDS ORDERED: NALOXONE HCL 0.4MG/ML VIAL IV PRN (21:30)
[2021-02-14 22:15] VITALS: BP 130/62
[2021-02-15] VITALS: BP 134/68
[2021-02-15] MEDS ORDERED: ONDANSETRON HCL 4MG/2ML INJ IV PRN
[2021-02-15] MEDS ORDERED: DIPHENHYDRAMINE 25MG CAPSULE PO PRN
[2021-02-15] MEDS ORDERED: DEXTROSE 50% WATER 50ML SYRINGE IV PRN
[2021-02-15] MEDS ORDERED: ACETAMINOPHEN 325MG TABLET PO PRN
[2021-02-15] MEDS ORDERED: CLONIDINE 0.1MG TABLET PO PRN
[2021-02-15 04:00] VITALS: BP 129/75
[2021-02-15] MEDS: HYDRALAZINE HCL 100MG TABLET PO SCH ×3 (06:00→21:07)
[2021-02-15] MEDS: BLOOD SUGAR DIAGNOSTIC STRIP TEST SCH ×4 (06:24→20:47)
[2021-02-15] MEDS: INSULIN LISPRO 100 UNITS/ML SUBCUT SCH ×4 (06:24→20:51)
[2021-02-15] MEDS: OMEPRAZOLE 20MG CAPSULE EXTENDED RELEASE PO SCH (06:28)
[2021-02-15 07:32] LABS: HEMATOCRIT. 26.7 % (36.0-48.0); MEAN CORPUSCULAR HEMOGLOBIN 32.3 pg (28.0-32.0); MEAN CORPUSCULAR VOLUME 95.5 fL (81.0-99.0); MEAN PLATELET VOLUME 8.1 fl (7.4-10.4); PLATELET 205 x1000/uL (130-400); RED BLOOD CELL COUNT 2.79 mill/uL (4.2-5.4); RED CELL DISTRIBUTION WIDTH 16.3 % (11.6-14.6)
[2021-02-15 08:00] VITALS: BP 123/75
[2021-02-15] MEDS ORDERED: PNEUMOCOCCAL 23-VAL P-SAC VAC 0.5 ML IM ONE (08:00)
[2021-02-15 08:01] LABS: HEPATITIS B SURFACE ANTIGEN NEGATIVE
[2021-02-15 08:31] LABS: HEPATITIS A AB IGM NEGATIVE (NEGATIVE)
[2021-02-15] MEDS: AMLODIPINE 10MG TABLET PO SCH (09:00)
[2021-02-15] MEDS: DOXAZOSIN MESYLATE 4MG TABLET PO SCH (09:00)
[2021-02-15] MEDS: DILTIAZEM HCL 120MG CAPSULE CD 24HR PO SCH (09:00)
[2021-02-15] MEDS: METOPROLOL TARTRATE 25MG TABLET PO SCH ×2 (09:00→20:47)
[2021-02-15] MEDS: SEVELAMER CARBONATE 800 MG TABLET PO SCH ×3 (09:46→17:30)
[2021-02-15] MEDS: INS NPH/REG HM 70-30 100 UNITS/ML 10ML VIAL (HUMULIN 70-30) SUBCUT SCH ×2 (09:48→17:35)
[2021-02-15 10:56] LABS: PLATELET ESTIMATE NORMAL
[2021-02-15 12:00] VITALS: BP 129/78
[2021-02-15 16:00] VITALS: BP 132/62
[2021-02-15] MEDS: TRAMADOL 50MG TABLET PO PRN (17:31)
[2021-02-15 20:00] VITALS: BP 144/77
[2021-02-15] MEDS: HYDROCODONE/ACETAMINOPHEN 5/325MG TABLET PO PRN (20:47)
[2021-02-16] VITALS: BP 98/68
[2021-02-16 04:00] VITALS: BP 120/63
[2021-02-16] MEDS: BLOOD SUGAR DIAGNOSTIC STRIP TEST SCH ×4 (06:39→20:31)
[2021-02-16] MEDS: INSULIN LISPRO 100 UNITS/ML SUBCUT SCH ×4 (06:40→20:32)
[2021-02-16] MEDS: INS NPH/REG HM 70-30 100 UNITS/ML 10ML VIAL (HUMULIN 70-30) SUBCUT SCH ×2 (06:42→16:55)
[2021-02-16] MEDS: OMEPRAZOLE 20MG CAPSULE EXTENDED RELEASE PO SCH (06:43)
[2021-02-16] MEDS: SEVELAMER CARBONATE 800 MG TABLET PO SCH ×3 (06:43→16:56)
[2021-02-16] MEDS: HYDRALAZINE HCL 100MG TABLET PO SCH ×3 (06:43→21:52)
[2021-02-16 06:49] LABS: HEMATOCRIT. 26.7 % (36.0-48.0); HEMOGLOBIN. 9.1 g/dL (12.0-16.0); MEAN CORPUSCULAR HEMOGLOBIN 32.6 pg (28.0-32.0); MEAN CORPUSCULAR VOLUME 95.4 fL (81.0-99.0); MEAN PLATELET VOLUME 8.1 fl (7.4-10.4); PLATELET 215 x1000/uL (130-400); RED CELL DISTRIBUTION WIDTH 16.4 % (11.6-14.6)
[2021-02-16 08:00] VITALS: BP 119/92
[2021-02-16] MEDS: DOXAZOSIN MESYLATE 4MG TABLET PO SCH (09:33)
[2021-02-16] MEDS: DILTIAZEM HCL 120MG CAPSULE CD 24HR PO SCH (09:33)
[2021-02-16] MEDS: METOPROLOL TARTRATE 25MG TABLET PO SCH ×2 (09:33→20:12)
[2021-02-16] MEDS: AMLODIPINE 10MG TABLET PO SCH (09:33)
[2021-02-16] MEDS: HYDROCODONE/ACETAMINOPHEN 5/325MG TABLET PO PRN (09:51)
[2021-02-16 12:00] VITALS: BP 114/69
[2021-02-16] MEDS: TRAMADOL 50MG TABLET PO PRN ×2 (13:47→20:31)
[2021-02-16 16:00] VITALS: BP 97/50
[2021-02-16 17:25] LABS: PLATELET ESTIMATE NORMAL
[2021-02-16] MEDS: ENOXAPARIN 80MG/0.8ML SYR SUBCUT SCH (18:22)
[2021-02-16 20:00] VITALS: BP 107/50
[2021-02-17] VITALS: BP 124/60
[2021-02-17 04:00] VITALS: BP 117/58
[2021-02-17] MEDS: HYDRALAZINE HCL 100MG TABLET PO SCH ×3 (05:59→22:00)
[2021-02-17] MEDS: OMEPRAZOLE 20MG CAPSULE EXTENDED RELEASE PO SCH (05:59)
[2021-02-17] MEDS: BLOOD SUGAR DIAGNOSTIC STRIP TEST SCH ×4 (05:59→20:25)
[2021-02-17 06:08] LABS: HEMATOCRIT. 26.8 % (36.0-48.0); HEMOGLOBIN. 8.9 g/dL (12.0-16.0); MEAN CORPUSCULAR HEMOGLOBIN 31.8 pg (28.0-32.0); MEAN CORPUSCULAR VOLUME 95.4 fL (81.0-99.0); MEAN PLATELET VOLUME 8.1 fl (7.4-10.4); PLATELET 238 x1000/uL (130-400); RED BLOOD CELL COUNT 2.81 mill/uL (4.2-5.4); RED CELL DISTRIBUTION WIDTH 16.4 % (11.6-14.6)
[2021-02-17] MEDS: INSULIN LISPRO 100 UNITS/ML SUBCUT SCH ×4 (06:10→21:00)
[2021-02-17] MEDS: SEVELAMER CARBONATE 800 MG TABLET PO SCH ×3 (06:10→17:10)
[2021-02-17] MEDS: HYDROCODONE/ACETAMINOPHEN 5/325MG TABLET PO PRN ×4 (06:14→20:35)
[2021-02-17] MEDS: INS NPH/REG HM 70-30 100 UNITS/ML 10ML VIAL (HUMULIN 70-30) SUBCUT SCH ×2 (06:15→17:39)
[2021-02-17 08:00] VITALS: BP 125/48
[2021-02-17] MEDS: AMLODIPINE 10MG TABLET PO SCH (11:36)
[2021-02-17] MEDS: DOXAZOSIN MESYLATE 4MG TABLET PO SCH (11:37)
[2021-02-17] MEDS: METOPROLOL TARTRATE 25MG TABLET PO SCH ×2 (11:37→20:25)
[2021-02-17 12:00] VITALS: BP 119/68
[2021-02-17 16:00] VITALS: BP 122/63
[2021-02-17] MEDS: ENOXAPARIN 80MG/0.8ML SYR SUBCUT SCH (17:09)
[2021-02-17] MEDS: TRAMADOL 50MG TABLET PO PRN (17:11)
[2021-02-17 19:50] LABS: PLATELET ESTIMATE NORMAL
[2021-02-17 20:00] VITALS: BP 106/55
[2021-02-18] VITALS: BP 111/58
[2021-02-18 04:00] VITALS: BP 118/64
[2021-02-18] MEDS: OMEPRAZOLE 20MG CAPSULE EXTENDED RELEASE PO SCH (06:12)
[2021-02-18] MEDS: SEVELAMER CARBONATE 800 MG TABLET PO SCH ×3 (06:12→16:22)
[2021-02-18] MEDS: HYDRALAZINE HCL 100MG TABLET PO SCH ×3 (06:12→21:00)
[2021-02-18] MEDS: BLOOD SUGAR DIAGNOSTIC STRIP TEST SCH ×4 (06:18→21:00)
[2021-02-18] MEDS: INS NPH/REG HM 70-30 100 UNITS/ML 10ML VIAL (HUMULIN 70-30) SUBCUT SCH ×2 (06:18→16:29)
[2021-02-18] MEDS: INSULIN LISPRO 100 UNITS/ML SUBCUT SCH ×4 (06:19→21:00)
[2021-02-18] MEDS: HYDROCODONE/ACETAMINOPHEN 5/325MG TABLET PO PRN ×4 (06:31→23:38)
[2021-02-18 07:29] LABS: HEMATOCRIT. 26.8 % (36.0-48.0); HEMOGLOBIN. 8.8 g/dL (12.0-16.0); MEAN CORPUSCULAR HEMOGLOBIN 31.7 pg (28.0-32.0); MEAN CORPUSCULAR VOLUME 96.4 fL (81.0-99.0); MEAN PLATELET VOLUME 8.1 fl (7.4-10.4); PLATELET 237 x1000/uL (130-400); RED BLOOD CELL COUNT 2.78 mill/uL (4.2-5.4); RED CELL DISTRIBUTION WIDTH 16.4 % (11.6-14.6)
[2021-02-18 08:00] VITALS: BP 94/59
[2021-02-18] MEDS ORDERED: LIDOCAINE HCL 1% 20ML VIAL (Pyxis) INJ ONE (08:33)
[2021-02-18] MEDS ORDERED: SODIUM BICARBONATE 4% (2.4MEQ) 5ML VIAL IV ONE (08:33)
[2021-02-18] MEDS: AMLODIPINE 10MG TABLET PO SCH (09:00)
[2021-02-18] MEDS: DOXAZOSIN MESYLATE 4MG TABLET PO SCH (09:00)
[2021-02-18] MEDS: METOPROLOL TARTRATE 25MG TABLET PO SCH ×2 (09:00→20:15)
[2021-02-18 09:03] LABS: CHLORIDE 99 mEq/L (98-107)
[2021-02-18] MEDS ORDERED: HEPARIN SODIUM 1,000 UNIT/1ML VIAL IV NR (10:45)
[2021-02-18 12:00] VITALS: BP 106/62
[2021-02-18 16:00] VITALS: BP 125/66
[2021-02-18] MEDS: ENOXAPARIN 80MG/0.8ML SYR SUBCUT SCH (16:23)
[2021-02-18 17:30] LABS: PLATELET ESTIMATE NORMAL
[2021-02-18 20:00] VITALS: BP 107/55
[2021-02-19] VITALS: BP 109/51
[2021-02-19 04:00] VITALS: BP 129/60
[2021-02-19] MEDS: INSULIN LISPRO 100 UNITS/ML SUBCUT SCH ×4 (06:13→21:00)
[2021-02-19] MEDS: BLOOD SUGAR DIAGNOSTIC STRIP TEST SCH ×4 (06:13→21:00)
[2021-02-19] MEDS: HYDRALAZINE HCL 100MG TABLET PO SCH ×3 (06:18→22:00)
[2021-02-19] MEDS: OMEPRAZOLE 20MG CAPSULE EXTENDED RELEASE PO SCH (06:18)
[2021-02-19] MEDS: SEVELAMER CARBONATE 800 MG TABLET PO SCH ×3 (06:18→17:57)
[2021-02-19] MEDS: INS NPH/REG HM 70-30 100 UNITS/ML 10ML VIAL (HUMULIN 70-30) SUBCUT SCH ×2 (06:21→18:00)
[2021-02-19 06:22] LABS: HEMOGLOBIN. 8.6 g/dL (12.0-16.0); MEAN CORPUSCULAR HEMOGLOBIN 31.9 pg (28.0-32.0); MEAN CORPUSCULAR VOLUME 96.1 fL (81.0-99.0); MEAN PLATELET VOLUME 7.8 fl (7.4-10.4); PLATELET 242 x1000/uL (130-400); RED CELL DISTRIBUTION WIDTH 16.6 % (11.6-14.6)
[2021-02-19 08:00] VITALS: BP 133/56
[2021-02-19] MEDS: AMLODIPINE 10MG TABLET PO SCH (09:56)
[2021-02-19] MEDS: METOPROLOL TARTRATE 25MG TABLET PO SCH ×2 (09:57→21:00)
[2021-02-19] MEDS: DOXAZOSIN MESYLATE 4MG TABLET PO SCH (09:57)
[2021-02-19 12:00] VITALS: BP 127/74
[2021-02-19 12:16] LABS: PLATELET ESTIMATE NORMAL
[2021-02-19] MEDS: TRAMADOL 50MG TABLET PO PRN ×2 (14:35→19:50)
[2021-02-19 16:00] VITALS: BP 110/53
[2021-02-19] MEDS: ENOXAPARIN 80MG/0.8ML SYR SUBCUT SCH (17:56)
[2021-02-19 20:00] VITALS: BP 94/43
[2021-02-19] MEDS ORDERED: IOHEXOL-350 100 ML BOTTLE ONE (23:50)
[2021-02-20] VITALS (7 sets, daily range): BP systolic 109–127; BP diastolic 53–74
[2021-02-20] MEDS: HYDRALAZINE HCL 100MG TABLET PO SCH ×2 (06:00→15:00)
[2021-02-20] MEDS: INSULIN LISPRO 100 UNITS/ML SUBCUT SCH ×2 (06:33→12:10)
[2021-02-20] MEDS: BLOOD SUGAR DIAGNOSTIC STRIP TEST SCH ×2 (06:33→11:40)
[2021-02-20] MEDS: INS NPH/REG HM 70-30 100 UNITS/ML 10ML VIAL (HUMULIN 70-30) SUBCUT SCH (07:10)
[2021-02-20 07:50] LABS: HEMATOCRIT. 26.5 % (36.0-48.0); HEMOGLOBIN. 8.8 g/dL (12.0-16.0); PLATELET 249 x1000/uL (130-400); RED BLOOD CELL COUNT 2.75 mill/uL (4.2-5.4); RED CELL DISTRIBUTION WIDTH 16.8 % (11.6-14.6)
[2021-02-20] MEDS ORDERED: FAMOTIDINE 20MG TABLET PO SCH (09:00)
[2021-02-20] MEDS: METOPROLOL TARTRATE 25MG TABLET PO SCH (10:07)
[2021-02-20] MEDS: SEVELAMER CARBONATE 800 MG TABLET PO SCH ×2 (10:08→12:52)
[2021-02-20] MEDS: AMLODIPINE 10MG TABLET PO SCH (10:08)
[2021-02-20] MEDS: DOXAZOSIN MESYLATE 4MG TABLET PO SCH (10:09)
[2021-02-20 10:20] LABS: PLATELET ESTIMATE NORMAL
[2021-02-20] MEDS ORDERED: TRAMADOL 50MG TABLET PO PRN (10:45)
[2021-02-20] MEDS ORDERED: NALOXONE HCL 0.4MG/ML VIAL IV PRN (11:00)
== END 2021-02-20 17:25 | disposition home or self-care (01) | DRG 432 ==
LOC: ER 09:30 → MICUSO 14:09 → 7EST 21:25
PROVIDERS: ADMIT Internal Medicine; ATTEND Family Medicine Adult Medicine
PROC: 5A1D70Z Performance of Urinary Filtration, Intermittent, Less than 6 Hours Per Day (ICD-10-PCS; 2021-02-14)
PROC: 5A1D70Z Performance of Urinary Filtration, Intermittent, Less than 6 Hours Per Day (ICD-10-PCS; 2021-02-17)
PROC: 0W9G3ZZ Drainage of Peritoneal Cavity, Percutaneous Approach (ICD-10-PCS; principal; 2021-02-18)
PROC: 5A1D70Z Performance of Urinary Filtration, Intermittent, Less than 6 Hours Per Day (ICD-10-PCS; 2021-02-20)
DX: K74.60 Unspecified cirrhosis of liver (principal); J96.21 Acute and chronic respiratory failure with hypoxia; N18.6 End stage renal disease; I50.43 Acute on chronic combined systolic (congestive) and diastolic (congestive) heart failure; I13.2 Hypertensive heart and chronic kidney disease with heart failure and with stage 5 chronic kidney disease, or end stage renal disease; K76.6 Portal hypertension; R18.8 Other ascites; E87.1 Hypo-osmolality and hyponatremia; E44.1 Mild protein-calorie malnutrition; I43 Cardiomyopathy in diseases classified elsewhere; E66.9 Obesity, unspecified; I44.7 Left bundle-branch block, unspecified; I48.91 Unspecified atrial fibrillation; E78.5 Hyperlipidemia, unspecified; I27.20 Pulmonary hypertension, unspecified; I08.1 Rheumatic disorders of both mitral and tricuspid valves; E87.5 Hyperkalemia; Z20.822 Contact with and (suspected) exposure to COVID-19; E11.22 Type 2 diabetes mellitus with diabetic chronic kidney disease; W01.0XXA Fall on same level from slipping, tripping and stumbling without subsequent striking against object, initial encounter; D63.1 Anemia in chronic kidney disease; Z91.19 Patient's noncompliance with other medical treatment and regimen; Z99.2 Dependence on renal dialysis; Z90.710 Acquired absence of both cervix and uterus; Z68.31 Body mass index [BMI] 31.0-31.9, adult; Z79.01 Long term (current) use of anticoagulants; Z71.3 Dietary counseling and surveillance; Z87.891 Personal history of nicotine dependence; Z90.49 Acquired absence of other specified parts of digestive tract; Y93.89 Activity, other specified; Y99.8 Other external cause status; Y92.9 Unspecified place or not applicable; Z95.828 Presence of other vascular implants and grafts; I08.0 Rheumatic disorders of both mitral and aortic valves
CPT/HCPCS: 36415; 49083; 70496; 70498; 71045; 74177; 76604; 80048; 80053; 80069; 82140; 82962; 83735; 83880; 84443; 84484; 85025; 86705; 86709; 86803; 87340; 87426; 90732; 93005; 93306; 93880; 93970; 97161; 99291; J1644; J1650; J1815; J3490; Q0163; Q9967